=== PATIENT | female | born 1945 | race Caucasian/White ===

== ENCOUNTER 2022-05-02 18:13 | Emergency (ER) | payer OTHER ==
[~2022-05-02] VITALS: Ht 172.7 cm; Wt 74.8 kg
[2022-05-02 18:50] VITALS: BP 160/73
--- NOTE | 2022-05-02 19:21 | NUR ---
Patient taken to X-ray via WC.
--- NOTE | 2022-05-02 20:29 | NUR ---
PT TO 9
--- NOTE | 2022-05-02 20:31 | NUR ---
Dr. Jimenez examining patient.
[2022-05-02] MEDS ORDERED: MORPHINE SULFATE 4 MG/ML SYR IM ONE (20:40)
--- NOTE | 2022-05-02 20:49 | NUR ---
Pt taken to CT
[2022-05-02] MEDS ORDERED: PRED20TA5 PO (21:10)
[2022-05-02] MEDS ORDERED: AZIT250T4 PO (21:10)
[2022-05-02] MEDS ORDERED: ACETAMINOPHEN EXTRA STRENGTH 500 MG TAB PO ONE (21:55)
[2022-05-02 22:13] VITALS: BP 132/84
== END 2022-05-02 22:13 | disposition home or self-care (01) ==
LOC: MED 18:13
DX: J18.9 Pneumonia, unspecified organism (principal); Z88.2 Allergy status to sulfonamides; R51.9 Headache, unspecified
CPT/HCPCS: 70450; 71045; 96372; 99284; J2270